=== PATIENT | male | born 1965 | race American Indian/Alaskan Native ===

== ENCOUNTER 2018-08-16 11:17 | Day surgery (SDC) | payer MEDICARE, OTHER ==
[2018-08-16] MEDS ORDERED: IOPIDINE OS ONE (12:11)
[2018-08-16] MEDS ORDERED: NEOFRIN OS ONE (12:11)
[2018-08-16] MEDS ORDERED: MYDRIACYL OS ONE (12:11)
[2018-08-16] MEDS ORDERED: MYDRIACYL ONE (14:34)
[2018-08-16] MEDS ORDERED: IOPIDINE ONE (14:34)
[2018-08-16] MEDS ORDERED: NEOFRIN ONE (14:34)
[2018-08-16 15:04] VITALS: BP 118/74
== END 2018-08-16 11:18 | disposition home or self-care (01) ==
LOC: OR 11:17
PROVIDERS: ATTEND Specialist
DX: H26.492 Other secondary cataract, left eye (principal); E78.00 Pure hypercholesterolemia, unspecified; I10 Essential (primary) hypertension; K21.9 Gastro-esophageal reflux disease without esophagitis; Z72.89 Other problems related to lifestyle; Z98.890 Other specified postprocedural states; Z79.84 Long term (current) use of oral hypoglycemic drugs; Z79.899 Other long term (current) drug therapy; Z79.82 Long term (current) use of aspirin; Z98.42 Cataract extraction status, left eye; Z98.41 Cataract extraction status, right eye; Z86.73 Personal history of transient ischemic attack (TIA), and cerebral infarction without residual deficits
CPT/HCPCS: 82962

== ENCOUNTER 2018-08-23 11:28 | Day surgery (SDC) | payer MEDICARE, OTHER ==
[~2018-08-23 11:28] MED LIST: IOPIDINE ONE; MYDRIACYL ONE; NEOFRIN ONE
[2018-08-23] MEDS ORDERED: MYDRIACYL OD ONE (12:05)
[2018-08-23] MEDS ORDERED: NEOFRIN OD ONE (12:05)
[2018-08-23] MEDS ORDERED: IOPIDINE OD ONE (12:05)
[2018-08-23 13:18] VITALS: BP 119/75
== END 2018-08-23 11:29 | disposition home or self-care (01) ==
LOC: OR 11:28
PROVIDERS: ATTEND Specialist
DX: H26.491 Other secondary cataract, right eye (principal); E78.00 Pure hypercholesterolemia, unspecified; I10 Essential (primary) hypertension; K21.9 Gastro-esophageal reflux disease without esophagitis; Z72.89 Other problems related to lifestyle; Z98.890 Other specified postprocedural states; Z79.899 Other long term (current) drug therapy; Z79.82 Long term (current) use of aspirin; Z79.84 Long term (current) use of oral hypoglycemic drugs; Z98.42 Cataract extraction status, left eye; Z98.41 Cataract extraction status, right eye
CPT/HCPCS: 82962